=== PATIENT | female | born 1960 | race Caucasian/White ===

== ENCOUNTER 2016-12-17 18:53 | Emergency (ER) | payer MEDICARE, MEDICAID ==
[~2016-12-17 18:53] MED LIST: COZAAR DPS25 MG PO; DUONEB DPS3 ML IH; FLEXERIL-DPS10 MG PO; HUMALOG100 UNIT/1 SQ; HYDROCODONE 5MG/5 MG PO; ISOPTIN SR180 MG PO; KENALOG 0.1% D454 GM TP; LANTUS SOL100 UNIT/1 SQ; LASIX DPS40 MG PO; LEVAQUIN DPS500 MG PO; LEVOFLOXACIN250 MG; LIPITOR DPS10 MG PO; LIPITOR DPS20 MG PO; NEURONTIN DPS300 MG PO; NOVOLOG FL100 UNIT/1 SQ; NOVOLOG100 UNIT/1 SQ; NOVOLOG100 UNIT/2 SQ; PHOS-LO667 MG PO; PRILOSEC DPS20 MG PO; ROCALTROL DP0.25 MCG PO; ROCALTROL DPS0.5 MCG PO; SOD BICARB TAB650 MG PO; SURFAK DPS240 MG PO; TYLENOL DPS325 MG PO; ULTRAM DPS50 MG PO; VERAPAMIL ER180 M1 PO; VITAMIN D-32000 UNI1 PO; VITAMIN D2000 UNIT PO; VITAMIN D50000 UNIT PO; ZESTRIL DPS10 MG PO; ZOFRAN4 MG PO; ZOFRAN8 MG PO
== END 2016-12-17 20:50 | disposition home or self-care (01) ==
DX: S86.912A Strain of unspecified muscle(s) and tendon(s) at lower leg level, left leg, initial encounter (principal); I10 Essential (primary) hypertension; E11.9 Type 2 diabetes mellitus without complications; Z90.49 Acquired absence of other specified parts of digestive tract; Z98.890 Other specified postprocedural states; Z99.2 Dependence on renal dialysis; Z79.4 Long term (current) use of insulin; Z79.899 Other long term (current) drug therapy; X58.XXXA Exposure to other specified factors, initial encounter